=== PATIENT | male | born 1935 | race African-American/Black ===

== ENCOUNTER 2017-08-12 15:14 | Emergency (ER) | payer MEDICARE, MEDICAID ==
[~2017-08-12] VITALS: Ht 167.6 cm; Wt 54.0 kg
[2017-08-12 17:40] VITALS: BP 163/74
== END 2017-08-12 17:51 | disposition home or self-care (01) ==
LOC: ER 16:37
DX: Z45.2 Encounter for adjustment and management of vascular access device (principal); I10 Essential (primary) hypertension; E11.9 Type 2 diabetes mellitus without complications; Z98.890 Other specified postprocedural states
CPT/HCPCS: 99283

== ENCOUNTER 2018-03-02 08:45 | Inpatient (IN) | payer MEDICARE, MEDICAID ==
[~2018-03-02] VITALS: Ht 175.3 cm; Wt 78.0 kg
[2018-03-02] MEDS ORDERED: DEXTROSE 50% WATER 50ML SYRINGE IV ONE ×2 (09:31→10:15)
[2018-03-02] MEDS ORDERED: KETOROLAC 30MG/ML VIAL IV ONE (10:15)
[2018-03-02 10:28] LABS: HEMATOCRIT. 35.9 % (42.0-52.0); HEMOGLOBIN. 11.8 g/dL (14.0-18.0); MEAN CORPUSCULAR HEMOGLOBIN 30.4 pg (28.0-32.0); MEAN CORPUSCULAR VOLUME 92.4 fL (80.0-94.0); MEAN PLATELET VOLUME 9.9 fl (7.4-10.4); PLATELET 199 x1000/uL (130-400); RED BLOOD CELL COUNT 3.88 mill/uL (4.7-6.1); RED CELL DISTRIBUTION WIDTH 14.7 % (11.6-14.6)
[2018-03-02 11:13] LABS: PROTHROMBIN TIME 10.3 sec (9.1-11.1)
[2018-03-02 11:17] LABS: CHLORIDE 113 mEq/L (98-107); ETHANOL BLOOD < 10 mg/dL
[2018-03-02 11:18] LABS: PLATELET ESTIMATE NORMAL
[2018-03-02] MEDS ORDERED: CLONIDINE 0.1MG TABLET PO PRN (12:15)
[2018-03-02 12:29] LABS: BG BASE EXCESS -14.5 mmol/L (-2.0-2.0); BG CARBOXYHEMOGLOBIN 0.3 % (0.5-1.5); BG DEOXYHEMOGLOBIN 4.6 % (0.0-5.0); BG FRACTION INSPIRED OXYGEN 21; BG HCO3 ACT 11.1 mmol/L (22.0-26.0); BG METHEMOGLOBIN 0.5 % (0.0-1.5); BG OXYGEN SATURATION 95.4 % (92.0-98.5); BG OXYHEMOGLOBIN 94.6 % (94.0-97.0); BG PCO2 25.7 mmHg (35.0-45.0); BG PH 7.254 (7.350-7.450); BG PO2 84.6 mmHg (75.0-100.0); BG SAMPLE SITE LEFT RADIAL; BG TOTAL HEMOGLOBIN 11.1 g/dL (12.0-18.0); BG VENT MODE ROOM AIR
[2018-03-02 18:47] VITALS: BP 118/59
[2018-03-02 20:00] VITALS: BP 112/57
[2018-03-02] MEDS ORDERED: DEXTROSE 50% WATER 50ML SYRINGE IV PRN (20:30)
[2018-03-02] MEDS: BLOOD SUGAR DIAGNOSTIC STRIP TEST SCH (20:45)
[2018-03-02] MEDS: SODIUM BICARBONATE 100 MEQ in DEXTROSE 5% WATER 1,000 ML IV SCH (20:49)
[2018-03-02] MEDS: INSULIN LISPRO 100 UNITS/ML SUBCUT SCH (20:50)
[2018-03-02] MEDS: ENOXAPARIN 30MG/0.3ML SYR SUBCUT SCH (20:53)
[2018-03-02] MEDS: IPRATROPIUM/ALBUTEROL 0.5-3(2.5)MG/3ML NEB INH SCH (20:53)
[2018-03-02] MEDS: MORPHINE SULFATE 4 MG/ML CPJ (NOT FOR IM USE) IV PRN (20:57)
[2018-03-02] MEDS ORDERED: LEVOFLOXACIN 500MG PREMIX 100 ML IV NR (21:00)
[2018-03-02] MEDS ORDERED: PREG50CA PO (23:39)
[2018-03-02] MEDS ORDERED: LINA5TAB PO (23:39)
[2018-03-02] MEDS ORDERED: BENA20TA10 PO (23:39)
[2018-03-02] MEDS ORDERED: SPIR25TA6 PO (23:39)
[2018-03-02] MEDS ORDERED: ATOR20TA PO (23:39)
[2018-03-02] MEDS ORDERED: GLIM2TAB2 PO (23:39)
[2018-03-02] MEDS ORDERED: TAMS0.4C31 PO (23:39)
[2018-03-02] MEDS ORDERED: AMLO10TA80 PO (23:39)
[2018-03-02] MEDS ORDERED: LABE100T5 PO (23:39)
[2018-03-02] MEDS ORDERED: FINA5TAB11 PO (23:39)
[2018-03-02] MEDS ORDERED: ASPI-1159 PO (23:39)
[2018-03-03] MEDS: IPRATROPIUM/ALBUTEROL 0.5-3(2.5)MG/3ML NEB INH SCH ×4 (01:00→20:06)
[2018-03-03 04:00] VITALS: BP 106/58
[2018-03-03] MEDS: BLOOD SUGAR DIAGNOSTIC STRIP TEST SCH ×4 (06:45→20:33)
[2018-03-03] MEDS: INSULIN LISPRO 100 UNITS/ML SUBCUT SCH ×4 (06:47→20:33)
[2018-03-03] MEDS: SODIUM BICARBONATE 100 MEQ in DEXTROSE 5% WATER 1,000 ML IV SCH ×3 (07:00→23:13)
[2018-03-03 07:29] LABS: BG BASE EXCESS -10.6 mmol/L (-2.0-2.0); BG CARBOXYHEMOGLOBIN 0.9 % (0.5-1.5); BG DEOXYHEMOGLOBIN 4.9 % (0.0-5.0); BG FRACTION INSPIRED OXYGEN 21; BG HCO3 ACT 14.3 mmol/L (22.0-26.0); BG METHEMOGLOBIN 0.4 % (0.0-1.5); BG OXYHEMOGLOBIN 93.8 % (94.0-97.0); BG PCO2 28.8 mmHg (35.0-45.0); BG PH 7.313 (7.350-7.450); BG PO2 80.9 mmHg (75.0-100.0); BG SAMPLE SITE RIGHT RADIAL; BG TOTAL HEMOGLOBIN 11.4 g/dL (12.0-18.0); BG VENT MODE ROOM AIR
[2018-03-03 08:00] VITALS: BP 115/49
[2018-03-03 08:36] LABS: HEMATOCRIT. 30.2 % (42.0-52.0); HEMOGLOBIN. 10.1 g/dL (14.0-18.0); MEAN CORPUSCULAR HEMOGLOBIN 30.6 pg (28.0-32.0); MEAN CORPUSCULAR VOLUME 91.4 fL (80.0-94.0); MEAN PLATELET VOLUME 9.6 fl (7.4-10.4); PLATELET 180 x1000/uL (130-400); RED CELL DISTRIBUTION WIDTH 14.3 % (11.6-14.6)
[2018-03-03 09:29] LABS: CHLORIDE 112 mEq/L (98-107)
[2018-03-03 09:43] LABS: TOTAL IRON BINDING CAPACITY 186 ug/dL (250-450)
[2018-03-03] MEDS ORDERED: SODIUM POLYSTYRENE SULFONATE 15 G/60 ML BOT PO NR (09:45)
[2018-03-03 12:00] VITALS: BP 101/54
[2018-03-03] MEDS: TRAMADOL 50MG TABLET PO PRN ×2 (13:18→21:50)
[2018-03-03 14:34] LABS: CREATINE KINASE 764 IU/L (39-308)
[2018-03-03 15:59] LABS: PLATELET ESTIMATE NORMAL
[2018-03-03 20:00] VITALS: BP 114/58
[2018-03-03] MEDS: ENOXAPARIN 30MG/0.3ML SYR SUBCUT SCH (21:48)
[2018-03-04] VITALS: BP 116/66
[2018-03-04] MEDS: IPRATROPIUM/ALBUTEROL 0.5-3(2.5)MG/3ML NEB INH SCH ×4 (01:33→20:28)
[2018-03-04] MEDS: MORPHINE SULFATE 4 MG/ML CPJ (NOT FOR IM USE) IV PRN (02:50)
[2018-03-04 04:00] VITALS: BP 125/71
[2018-03-04] MEDS: BLOOD SUGAR DIAGNOSTIC STRIP TEST SCH ×4 (06:35→20:41)
[2018-03-04] MEDS: INSULIN LISPRO 100 UNITS/ML SUBCUT SCH ×4 (06:38→20:44)
[2018-03-04 08:00] VITALS: BP 148/68
[2018-03-04 08:04] LABS: HEMATOCRIT. 30.6 % (42.0-52.0); HEMOGLOBIN. 10.2 g/dL (14.0-18.0); MEAN CORPUSCULAR HEMOGLOBIN 30.2 pg (28.0-32.0); MEAN CORPUSCULAR VOLUME 90.5 fL (80.0-94.0); MEAN PLATELET VOLUME 9.6 fl (7.4-10.4); PLATELET 190 x1000/uL (130-400); RED BLOOD CELL COUNT 3.38 mill/uL (4.7-6.1); RED CELL DISTRIBUTION WIDTH 14.4 % (11.6-14.6)
[2018-03-04 11:13] LABS: PLATELET ESTIMATE NORMAL
[2018-03-04 12:00] VITALS: BP_SYST 132; BP_SYST 134; BP_DIAS 72
[2018-03-04 16:00] VITALS: BP_SYST 116; BP_DIAS 66; BP_DIAS 69
[2018-03-04] MEDS: TRAMADOL 50MG TABLET PO PRN (16:28)
[2018-03-04] MEDS: SODIUM BICARBONATE 100 MEQ in DEXTROSE 5% WATER 1,000 ML IV SCH (16:29)
[2018-03-04 20:00] VITALS: BP 109/61
[2018-03-04] MEDS: LEVOFLOXACIN 250MG PREMIX 50 ML IV SCH (20:44)
[2018-03-04] MEDS: ENOXAPARIN 30MG/0.3ML SYR SUBCUT SCH (20:45)
[2018-03-05] VITALS: BP 129/63
[2018-03-05] MEDS: IPRATROPIUM/ALBUTEROL 0.5-3(2.5)MG/3ML NEB INH SCH ×4 (01:53→20:51)
[2018-03-05] MEDS: SODIUM BICARBONATE 100 MEQ in DEXTROSE 5% WATER 1,000 ML IV SCH ×2 (03:11→15:05)
[2018-03-05 04:00] VITALS: BP 121/73
[2018-03-05] MEDS: MORPHINE SULFATE 4 MG/ML CPJ (NOT FOR IM USE) IV PRN (04:32)
[2018-03-05] MEDS: BLOOD SUGAR DIAGNOSTIC STRIP TEST SCH ×4 (06:27→21:34)
[2018-03-05] MEDS: INSULIN LISPRO 100 UNITS/ML SUBCUT SCH ×4 (06:30→21:42)
[2018-03-05 07:02] LABS: BASOPHILS % 0.7 % (0.0-2.0); EOSINOPHILS % 2.7 % (0.0-5.0); HEMATOCRIT. 33.1 % (42.0-52.0); HEMOGLOBIN. 11.1 g/dL (14.0-18.0); LYMPHOCYTES % 11.4 % (20.0-50.0); MEAN CORPUSCULAR HEMOGLOBIN 30.6 pg (28.0-32.0); MEAN CORPUSCULAR VOLUME 91.2 fL (80.0-94.0); MEAN PLATELET VOLUME 9.4 fl (7.4-10.4); MONOCYTES % 14.1 % (2.0-8.0); NEUTROPHILS % 71.1 % (40.0-76.0); PLATELET 186 x1000/uL (130-400); RED BLOOD CELL COUNT 3.63 mill/uL (4.7-6.1); RED CELL DISTRIBUTION WIDTH 14.6 % (11.6-14.6)
[2018-03-05 08:00] VITALS: BP 131/78
[2018-03-05 11:58] LABS: T4 FREE 1.6 ng/dL (0.76-1.46)
[2018-03-05 12:00] VITALS: BP 118/67
[2018-03-05 12:13] LABS: FOLIC ACID (FOLATE) SERUM 12.6 ng/mL (>5.38)
[2018-03-05 16:00] VITALS: BP 114/63
[2018-03-05 16:23] LABS: BG BASE EXCESS -2.6 mmol/L (-2.0-2.0); BG CARBOXYHEMOGLOBIN 0.7 % (0.5-1.5); BG DEOXYHEMOGLOBIN 6.9 % (0.0-5.0); BG FRACTION INSPIRED OXYGEN 21; BG HCO3 ACT 21.7 mmol/L (22.0-26.0); BG METHEMOGLOBIN 0.3 % (0.0-1.5); BG OXYHEMOGLOBIN 92.1 % (94.0-97.0); BG PCO2 35.8 mmHg (35.0-45.0); BG PH 7.401 (7.350-7.450); BG PO2 68.6 mmHg (75.0-100.0); BG SAMPLE SITE RIGHT RADIAL; BG TOTAL HEMOGLOBIN 10.6 g/dL (12.0-18.0); BG VENT MODE ROOM AIR
[2018-03-05 20:00] VITALS: BP 122/72
[2018-03-05] MEDS: ENOXAPARIN 30MG/0.3ML SYR SUBCUT SCH (21:34)
[2018-03-06] VITALS: BP 119/68
[2018-03-06] MEDS: IPRATROPIUM/ALBUTEROL 0.5-3(2.5)MG/3ML NEB INH SCH ×4 (01:01→20:40)
[2018-03-06 04:00] VITALS: BP 132/71
[2018-03-06] MEDS: MORPHINE SULFATE 4 MG/ML CPJ (NOT FOR IM USE) IV PRN ×2 (05:23→17:25)
[2018-03-06] MEDS: BLOOD SUGAR DIAGNOSTIC STRIP TEST SCH ×4 (05:23→21:05)
[2018-03-06] MEDS: ONDANSETRON HCL 4MG/2ML INJ IV PRN (05:23)
[2018-03-06] MEDS: SODIUM BICARBONATE 100 MEQ in DEXTROSE 5% WATER 1,000 ML IV SCH ×2 (05:24→15:11)
[2018-03-06] MEDS: INSULIN LISPRO 100 UNITS/ML SUBCUT SCH ×4 (07:01→21:05)
[2018-03-06 08:36] VITALS: BP 107/67
[2018-03-06 09:31] LABS: HEMATOCRIT. 30.8 % (42.0-52.0); HEMOGLOBIN. 10.2 g/dL (14.0-18.0); MEAN CORPUSCULAR HEMOGLOBIN 30.1 pg (28.0-32.0); MEAN CORPUSCULAR VOLUME 90.9 fL (80.0-94.0); MEAN PLATELET VOLUME 9.4 fl (7.4-10.4); PLATELET 184 x1000/uL (130-400); RED BLOOD CELL COUNT 3.39 mill/uL (4.7-6.1); RED CELL DISTRIBUTION WIDTH 14.2 % (11.6-14.6)
[2018-03-06 11:47] VITALS: BP 134/70
[2018-03-06] MEDS: DEXAMETHASONE 4MG/ML 1ML VIAL IV SCH ×2 (12:21→17:24)
[2018-03-06 14:23] LABS: PLATELET ESTIMATE NORMAL
[2018-03-06 15:42] VITALS: BP 122/65
[2018-03-06 20:41] VITALS: BP 130/88
[2018-03-06] MEDS: LEVOFLOXACIN 250MG PREMIX 50 ML IV SCH (20:57)
[2018-03-06] MEDS: ENOXAPARIN 30MG/0.3ML SYR SUBCUT SCH (20:58)
[2018-03-07] VITALS: BP 128/66
[2018-03-07] MEDS: IPRATROPIUM/ALBUTEROL 0.5-3(2.5)MG/3ML NEB INH SCH ×4 (01:17→20:34)
[2018-03-07] MEDS: SODIUM BICARBONATE 100 MEQ in DEXTROSE 5% WATER 1,000 ML IV SCH (01:31)
[2018-03-07] MEDS: MORPHINE SULFATE 4 MG/ML CPJ (NOT FOR IM USE) IV PRN (01:31)
[2018-03-07] MEDS: DEXAMETHASONE 4MG/ML 1ML VIAL IV SCH ×4 (01:31→17:56)
[2018-03-07 04:00] VITALS: BP 115/66
[2018-03-07] MEDS: INSULIN LISPRO 100 UNITS/ML SUBCUT SCH ×4 (06:25→21:17)
[2018-03-07] MEDS: BLOOD SUGAR DIAGNOSTIC STRIP TEST SCH ×4 (06:25→20:48)
[2018-03-07 08:00] VITALS: BP 125/66
[2018-03-07] MEDS: SODIUM CHLORIDE 0.45% 1,000 ML IV SCH (09:28)
[2018-03-07 10:20] LABS: CREATINE KINASE 170 IU/L (39-308)
[2018-03-07 12:00] VITALS: BP 134/67
[2018-03-07] MEDS ORDERED: BISACODYL 10MG SUPP PR NR (13:00)
[2018-03-07] MEDS: LACTULOSE 20G/30ML UDC PO SCH ×3 (15:42→21:07)
[2018-03-07 16:00] VITALS: BP 120/73
[2018-03-07 20:00] VITALS: BP 115/71
[2018-03-07] MEDS: ENOXAPARIN 30MG/0.3ML SYR SUBCUT SCH (21:07)
[2018-03-08] VITALS: BP 110/80
[2018-03-08] MEDS: IPRATROPIUM/ALBUTEROL 0.5-3(2.5)MG/3ML NEB INH SCH ×3 (01:25→20:16)
[2018-03-08] MEDS: DEXAMETHASONE 4MG/ML 1ML VIAL IV SCH ×5 (02:26→23:43)
[2018-03-08] MEDS: SODIUM CHLORIDE 0.45% 1,000 ML IV SCH ×3 (02:26→23:52)
[2018-03-08 04:00] VITALS: BP 148/60
[2018-03-08] MEDS: BLOOD SUGAR DIAGNOSTIC STRIP TEST SCH ×4 (05:39→20:54)
[2018-03-08] MEDS: INSULIN LISPRO 100 UNITS/ML SUBCUT SCH ×4 (05:55→21:03)
[2018-03-08] MEDS: TRAMADOL 50MG TABLET PO PRN (07:02)
[2018-03-08 07:18] LABS: HEMATOCRIT. 31.1 % (42.0-52.0); HEMOGLOBIN. 10.2 g/dL (14.0-18.0); MEAN CORPUSCULAR VOLUME 91.2 fL (80.0-94.0); PLATELET 190 x1000/uL (130-400)
[2018-03-08 08:00] VITALS: BP 138/82
[2018-03-08 08:38] LABS: PHOSPHORUS 3.3 mg/dL (2.5-4.9)
[2018-03-08] MEDS: MORPHINE SULFATE 4 MG/ML CPJ (NOT FOR IM USE) IV PRN ×2 (11:22→17:29)
[2018-03-08 12:00] VITALS: BP 119/65
[2018-03-08 15:57] LABS: PLATELET ESTIMATE NORMAL
[2018-03-08 16:00] VITALS: BP 140/67
[2018-03-08] MEDS ORDERED: BISACODYL 10MG SUPP PR SCH (17:50)
[2018-03-08] MEDS: LACTULOSE 20G/30ML UDC PO SCH ×3 (18:45→23:51)
[2018-03-08 20:00] VITALS: BP 147/66
[2018-03-08] MEDS: LEVOFLOXACIN 250MG PREMIX 50 ML IV SCH (20:30)
[2018-03-09] VITALS (49 sets, daily range): BP systolic -1–178; BP diastolic -5–106
[2018-03-09] MEDS: IPRATROPIUM/ALBUTEROL 0.5-3(2.5)MG/3ML NEB INH SCH ×3 (02:04→14:30)
[2018-03-09] MEDS: DEXAMETHASONE 4MG/ML 1ML VIAL IV SCH ×3 (05:41→18:52)
[2018-03-09] MEDS: BLOOD SUGAR DIAGNOSTIC STRIP TEST SCH ×4 (05:42→20:28)
[2018-03-09] MEDS: INSULIN LISPRO 100 UNITS/ML SUBCUT SCH ×4 (05:56→20:33)
[2018-03-09] MEDS ORDERED: GELATIN SPONGE,ABSORBABLE 12-7MM SPONGE ONE (07:43)
[2018-03-09] MEDS ORDERED: NORMAL SALINE 0.9% 10 ML SYR ONE (07:43)
[2018-03-09] MEDS ORDERED: BACITRACIN 50,000 UNITS/VIAL ONE (07:44)
[2018-03-09] MEDS ORDERED: THROMBIN (BOVINE) 5000 UNITS/VIAL TOP ONE (07:44)
[2018-03-09] MEDS ORDERED: LIDOCAINE HCL/EPINEPHRINE 1%-EPI 1:100,000 20 ML VIAL ONE (07:44)
[2018-03-09] MEDS ORDERED: ROCURONIUM BROMIDE 10MG/ML VIAL 5ML IV ONE (07:45)
[2018-03-09] MEDS ORDERED: MIDAZOLAM HCL 2 MG/2 ML VIAL ONE (07:45)
[2018-03-09] MEDS ORDERED: FENTANYL CITRATE/PF 50MCG/ML 5ML VIAL ONE (07:45)
[2018-03-09] MEDS ORDERED: HYDROMORPHONE HCL/PF 2MG/ML (OR) ONE (07:45)
[2018-03-09] MEDS ORDERED: PROPOFOL 200MG/20ML VIAL IV ONE (07:45)
[2018-03-09] MEDS ORDERED: INSULIN REGULAR (HUMULIN R) 300UNITS/3ML ONE (08:58)
[2018-03-09] MEDS ORDERED: NICARDIPINE 50 MG in SODIUM CHLORIDE 0.9% 230 ML IV PRN (09:15)
[2018-03-09 09:31] LABS: CREATINE KINASE 289 IU/L (39-308)
[2018-03-09] MEDS ORDERED: ESMOLOL HCL 10MG/ML 10ML VIAL IV ONE (09:43)
[2018-03-09] MEDS ORDERED: CEFAZOLIN SODIUM 1000MG/VIAL ONE (09:44)
[2018-03-09] MEDS ORDERED: LIDOCAINE HCL/PF 1% 10 MG/ML 5ML VIAL ONE (09:44)
[2018-03-09] MEDS ORDERED: NITROGLYCERIN 50MG PREMIX 250 ML IV ONE (09:50)
[2018-03-09] MEDS ORDERED: NITROPRUSSIDE 50 MG in SODIUM CHLORIDE 0.9% 248 ML IV PRN (10:30)
[2018-03-09] MEDS ORDERED: ONDANSETRON HCL 4MG/2ML INJ ONE (11:04)
[2018-03-09] MEDS ORDERED: DEXAMETHASONE 4MG/ML 1ML VIAL ONE (11:04)
[2018-03-09 11:25] LABS: HEMATOCRIT. 31.1 % (42.0-52.0); HEMOGLOBIN. 10.2 g/dL (14.0-18.0); MEAN CORPUSCULAR HEMOGLOBIN 30.1 pg (28.0-32.0); MEAN CORPUSCULAR VOLUME 92.3 fL (80.0-94.0); PLATELET 198 x1000/uL (130-400); RED BLOOD CELL COUNT 3.37 mill/uL (4.7-6.1); RED CELL DISTRIBUTION WIDTH 13.9 % (11.6-14.6)
[2018-03-09] MEDS ORDERED: NALOXONE INJ IV PRN (12:15)
[2018-03-09] MEDS ORDERED: HYDROMORPHONE PCA 10MG/50ML IV PRN (12:15)
[2018-03-09] MEDS ORDERED: ONDANSETRON INJ IV PRN (12:15)
[2018-03-09] MEDS ORDERED: DIPHENHYDRAMINE INJ IV PRN (12:15)
[2018-03-09 12:27] LABS: PLATELET ESTIMATE NORMAL
[2018-03-09] MEDS: MORPHINE SULFATE 4 MG/ML CPJ (NOT FOR IM USE) IV PRN (12:32)
[2018-03-09] MEDS: SODIUM CHLORIDE 0.45% 1,000 ML IV SCH ×2 (13:06→20:33)
[2018-03-09] MEDS: LEVOFLOXACIN 250MG PREMIX 50 ML IV SCH (20:33)
[2018-03-10] VITALS (81 sets, daily range): BP systolic -4–164; BP diastolic -4–109
[2018-03-10] MEDS: DEXAMETHASONE 4MG/ML 1ML VIAL IV SCH ×5 (00:32→23:30)
[2018-03-10] MEDS: MORPHINE SULFATE 4 MG/ML CPJ (NOT FOR IM USE) IV PRN (00:59)
[2018-03-10] MEDS: IPRATROPIUM/ALBUTEROL 0.5-3(2.5)MG/3ML NEB INH SCH ×2 (01:07→10:00)
[2018-03-10] MEDS: BLOOD SUGAR DIAGNOSTIC STRIP TEST SCH ×4 (05:48→20:05)
[2018-03-10] MEDS: SODIUM CHLORIDE 0.45% 1,000 ML IV SCH ×2 (05:50→17:30)
[2018-03-10 06:01] LABS: HEMATOCRIT. 28.4 % (42.0-52.0); HEMOGLOBIN. 9.4 g/dL (14.0-18.0); MEAN CORPUSCULAR HEMOGLOBIN 30.1 pg (28.0-32.0); MEAN CORPUSCULAR VOLUME 90.6 fL (80.0-94.0); PLATELET 193 x1000/uL (130-400); RED BLOOD CELL COUNT 3.13 mill/uL (4.7-6.1)
[2018-03-10] MEDS: INSULIN LISPRO 100 UNITS/ML SUBCUT SCH ×4 (06:02→20:32)
[2018-03-10 09:56] LABS: PLATELET ESTIMATE NORMAL
[2018-03-10] MEDS: LABETALOL HCL 100MG TABLET PO SCH ×2 (12:00→20:22)
[2018-03-10] MEDS: IPRATROPIUM/ALBUTEROL 0.5-3(2.5)MG/3ML NEB HHN SCH ×2 (12:51→20:27)
[2018-03-10] MEDS: AMLODIPINE 5MG TABLET PO SCH ×2 (17:30→20:22)
[2018-03-10] MEDS ORDERED: IPRATROPIUM/ALBUTEROL 0.5-3(2.5)MG/3ML NEB HHN PRN (18:30)
[2018-03-11] VITALS (46 sets, daily range): BP systolic 120–151; BP diastolic 59–85
[2018-03-11] MEDS: DEXAMETHASONE 4MG/ML 1ML VIAL IV SCH ×4 (05:06→23:28)
[2018-03-11] MEDS: SODIUM CHLORIDE 0.45% 1,000 ML IV SCH ×2 (05:07→18:16)
[2018-03-11] MEDS: BLOOD SUGAR DIAGNOSTIC STRIP TEST SCH ×4 (06:29→21:22)
[2018-03-11] MEDS: INSULIN LISPRO 100 UNITS/ML SUBCUT SCH ×4 (06:33→21:25)
[2018-03-11 07:31] LABS: CHLORIDE 103 mEq/L (98-107)
[2018-03-11 07:32] LABS: CREATINE KINASE 313 IU/L (39-308)
[2018-03-11 07:43] LABS: HEMATOCRIT. 29.8 % (42.0-52.0); HEMOGLOBIN. 9.9 g/dL (14.0-18.0); RED BLOOD CELL COUNT 3.25 mill/uL (4.7-6.1)
[2018-03-11 07:44] LABS: MEAN CORPUSCULAR HEMOGLOBIN 30.5 pg (28.0-32.0); MEAN CORPUSCULAR VOLUME 91.8 fL (80.0-94.0); MEAN PLATELET VOLUME 9.7 fl (7.4-10.4); PLATELET 183 x1000/uL (130-400); RED CELL DISTRIBUTION WIDTH 13.8 % (11.6-14.6)
[2018-03-11] MEDS: IPRATROPIUM/ALBUTEROL 0.5-3(2.5)MG/3ML NEB HHN SCH ×3 (09:09→20:04)
[2018-03-11] MEDS ORDERED: BISACODYL 10MG SUPP PR NR (09:45)
[2018-03-11] MEDS: LABETALOL HCL 100MG TABLET PO SCH ×2 (12:05→21:21)
[2018-03-11] MEDS: AMLODIPINE 5MG TABLET PO SCH ×2 (12:06→21:22)
[2018-03-11] MEDS ORDERED: SODIUM POLYSTYRENE SULFONATE 15 G/60 ML BOT PO NR (12:30)
[2018-03-11 13:45] LABS: PLATELET ESTIMATE NORMAL
[2018-03-12] VITALS (16 sets, daily range): BP systolic 130–151; BP diastolic 56–82
[2018-03-12] MEDS: IPRATROPIUM/ALBUTEROL 0.5-3(2.5)MG/3ML NEB HHN SCH ×4 (01:32→20:54)
[2018-03-12] MEDS: SODIUM CHLORIDE 0.45% 1,000 ML IV SCH (04:03)
[2018-03-12 05:39] LABS: HEMATOCRIT. 27.9 % (42.0-52.0); HEMOGLOBIN. 9.4 g/dL (14.0-18.0); MEAN CORPUSCULAR HEMOGLOBIN 30.8 pg (28.0-32.0); MEAN CORPUSCULAR VOLUME 91.6 fL (80.0-94.0); MEAN PLATELET VOLUME 9.7 fl (7.4-10.4); PLATELET 179 x1000/uL (130-400); RED BLOOD CELL COUNT 3.04 mill/uL (4.7-6.1); RED CELL DISTRIBUTION WIDTH 13.8 % (11.6-14.6)
[2018-03-12] MEDS: BLOOD SUGAR DIAGNOSTIC STRIP TEST SCH ×5 (06:18→22:08)
[2018-03-12] MEDS: INSULIN LISPRO 100 UNITS/ML SUBCUT SCH ×5 (06:18→22:08)
[2018-03-12] MEDS: DEXAMETHASONE 4MG/ML 1ML VIAL IV SCH ×3 (06:18→18:16)
[2018-03-12 07:36] LABS: PLATELET ESTIMATE NORMAL
[2018-03-12] MEDS ORDERED: SODIUM POLYSTYRENE SULFONATE 15 G/60 ML BOT PO NR (07:45)
[2018-03-12] MEDS: LABETALOL HCL 100MG TABLET PO SCH ×2 (09:00→21:30)
[2018-03-12] MEDS: AMLODIPINE 5MG TABLET PO SCH ×2 (09:36→21:29)
[2018-03-13] VITALS: BP 127/72
[2018-03-13] MEDS: DEXAMETHASONE 4MG/ML 1ML VIAL IV SCH ×5 (00:27→23:24)
[2018-03-13] MEDS: IPRATROPIUM/ALBUTEROL 0.5-3(2.5)MG/3ML NEB HHN SCH ×4 (00:54→21:12)
[2018-03-13 04:00] VITALS: BP 133/68
[2018-03-13 06:11] LABS: HEMATOCRIT. 28.6 % (42.0-52.0); HEMOGLOBIN. 9.4 g/dL (14.0-18.0); MEAN CORPUSCULAR HEMOGLOBIN 30.1 pg (28.0-32.0); MEAN CORPUSCULAR VOLUME 91.6 fL (80.0-94.0); MEAN PLATELET VOLUME 9.9 fl (7.4-10.4); PLATELET 189 x1000/uL (130-400); RED BLOOD CELL COUNT 3.12 mill/uL (4.7-6.1)
[2018-03-13] MEDS: MORPHINE SULFATE 4 MG/ML CPJ (NOT FOR IM USE) IV PRN (07:38)
[2018-03-13] MEDS: BLOOD SUGAR DIAGNOSTIC STRIP TEST SCH ×4 (07:40→20:47)
[2018-03-13 08:00] VITALS: BP 151/82
[2018-03-13] MEDS ORDERED: SODIUM POLYSTYRENE SULFONATE 15 G/60 ML BOT PO SCH (09:15)
[2018-03-13] MEDS: LABETALOL HCL 100MG TABLET PO SCH ×2 (09:26→20:47)
[2018-03-13] MEDS: INSULIN LISPRO 100 UNITS/ML SUBCUT SCH ×4 (09:26→20:58)
[2018-03-13] MEDS: AMLODIPINE 5MG TABLET PO SCH ×2 (09:27→20:47)
[2018-03-13] MEDS: DEXT 5%/0.45% NACL 1000ML 1,000 ML IV SCH (09:45)
[2018-03-13 10:11] LABS: PLATELET ESTIMATE NORMAL
[2018-03-13 12:00] VITALS: BP 155/125
[2018-03-13 16:00] VITALS: BP 142/69
[2018-03-13 20:00] VITALS: BP 135/65
[2018-03-14] VITALS: BP 136/72
[2018-03-14] MEDS: IPRATROPIUM/ALBUTEROL 0.5-3(2.5)MG/3ML NEB HHN SCH ×4 (01:25→20:26)
[2018-03-14 04:00] VITALS: BP 119/62
[2018-03-14] MEDS: BLOOD SUGAR DIAGNOSTIC STRIP TEST SCH ×4 (06:20→21:34)
[2018-03-14] MEDS: DEXAMETHASONE 4MG/ML 1ML VIAL IV SCH ×3 (06:24→18:38)
[2018-03-14 06:30] LABS: HEMATOCRIT. 30.5 % (42.0-52.0); MEAN CORPUSCULAR VOLUME 91.8 fL (80.0-94.0); MEAN PLATELET VOLUME 9.7 fl (7.4-10.4); PLATELET 207 x1000/uL (130-400); RED BLOOD CELL COUNT 3.32 mill/uL (4.7-6.1); RED CELL DISTRIBUTION WIDTH 14.3 % (11.6-14.6)
[2018-03-14 08:00] VITALS: BP 157/80
[2018-03-14] MEDS: DEXT 5%/0.45% NACL 1000ML 1,000 ML IV SCH (08:56)
[2018-03-14] MEDS: AMLODIPINE 5MG TABLET PO SCH ×2 (09:32→21:00)
[2018-03-14] MEDS: LABETALOL HCL 100MG TABLET PO SCH ×2 (09:33→21:00)
[2018-03-14] MEDS: INSULIN LISPRO 100 UNITS/ML SUBCUT SCH ×5 (09:37→21:38)
[2018-03-14 09:38] LABS: PLATELET ESTIMATE NORMAL
[2018-03-14] MEDS ORDERED: SODIUM POLYSTYRENE SULFONATE 15 G/60 ML BOT PO SCH (10:00)
[2018-03-14 12:00] VITALS: BP 132/73
[2018-03-14 16:00] VITALS: BP 122/65
[2018-03-14 20:00] VITALS: BP 135/66
[2018-03-15] VITALS (8 sets, daily range): BP systolic 123–159; BP diastolic 67–79
[2018-03-15] MEDS: DEXAMETHASONE 4MG/ML 1ML VIAL IV SCH ×4 (00:15→18:01)
[2018-03-15] MEDS: ACETYLCYSTEINE 100MG/ML 10% VIAL 4ML INH SCH ×3 (01:52→13:16)
[2018-03-15] MEDS: IPRATROPIUM/ALBUTEROL 0.5-3(2.5)MG/3ML NEB HHN SCH ×4 (01:52→20:57)
[2018-03-15 06:48] LABS: HEMOGLOBIN. 9.7 g/dL (14.0-18.0); MEAN CORPUSCULAR HEMOGLOBIN 29.9 pg (28.0-32.0); MEAN CORPUSCULAR VOLUME 92.7 fL (80.0-94.0); PLATELET 187 x1000/uL (130-400); RED BLOOD CELL COUNT 3.24 mill/uL (4.7-6.1); RED CELL DISTRIBUTION WIDTH 14.4 % (11.6-14.6)
[2018-03-15] MEDS: BLOOD SUGAR DIAGNOSTIC STRIP TEST SCH ×4 (06:54→21:00)
[2018-03-15] MEDS: DEXT 5%/0.45% NACL 1000ML 1,000 ML IV SCH ×2 (08:26→17:17)
[2018-03-15] MEDS: LABETALOL HCL 100MG TABLET PO SCH ×2 (08:28→22:34)
[2018-03-15] MEDS: AMLODIPINE 5MG TABLET PO SCH ×2 (08:28→22:35)
[2018-03-15] MEDS: INSULIN LISPRO 100 UNITS/ML SUBCUT SCH ×3 (08:29→17:40)
[2018-03-15] MEDS: INSULIN GLARGINE UD 100 UNITS/ML SYR SUBCUT SCH (10:41)
[2018-03-15] MEDS ORDERED: INSULIN LISPRO 100 UNITS/ML SUBCUT SCH ×2 (12:40→12:45)
[2018-03-15] MEDS: INSULIN LISPRO (CUSTOM DOSE) 100 UNITS/ML SUBCUT SCH ×2 (12:42→18:02)
[2018-03-15 16:51] LABS: PLATELET ESTIMATE NORMAL
[2018-03-16] VITALS (7 sets, daily range): BP systolic 95–159; BP diastolic 57–78
[2018-03-16] MEDS: DEXAMETHASONE 4MG/ML 1ML VIAL IV SCH ×2 (00:33→06:52)
[2018-03-16] MEDS: IPRATROPIUM/ALBUTEROL 0.5-3(2.5)MG/3ML NEB HHN SCH ×4 (02:15→19:50)
[2018-03-16] MEDS: DEXT 5%/0.45% NACL 1000ML 1,000 ML IV SCH ×2 (06:38→21:27)
[2018-03-16 06:52] LABS: HEMATOCRIT. 28.4 % (42.0-52.0); HEMOGLOBIN. 9.3 g/dL (14.0-18.0); MEAN CORPUSCULAR HEMOGLOBIN 30.5 pg (28.0-32.0); MEAN CORPUSCULAR VOLUME 92.9 fL (80.0-94.0); MEAN PLATELET VOLUME 10.2 fl (7.4-10.4); PLATELET 183 x1000/uL (130-400); RED BLOOD CELL COUNT 3.06 mill/uL (4.7-6.1); RED CELL DISTRIBUTION WIDTH 14.5 % (11.6-14.6)
[2018-03-16] MEDS: ACETAMINOPHEN 325MG TABLET PO PRN (06:52)
[2018-03-16] MEDS: INSULIN LISPRO 100 UNITS/ML SUBCUT SCH ×3 (07:40→18:38)
[2018-03-16] MEDS: BLOOD SUGAR DIAGNOSTIC STRIP TEST SCH ×4 (08:22→21:09)
[2018-03-16] MEDS: AMLODIPINE 5MG TABLET PO SCH ×2 (09:00→21:00)
[2018-03-16] MEDS: LABETALOL HCL 100MG TABLET PO SCH ×2 (09:00→21:00)
[2018-03-16 09:06] LABS: T4 FREE 1.25 ng/dL (0.76-1.46)
[2018-03-16] MEDS: INSULIN LISPRO (CUSTOM DOSE) 100 UNITS/ML SUBCUT SCH ×4 (10:35→21:28)
[2018-03-16] MEDS: INSULIN GLARGINE UD 100 UNITS/ML SYR SUBCUT SCH (10:38)
[2018-03-16 10:43] LABS: PLATELET ESTIMATE NORMAL
[2018-03-16] MEDS ORDERED: SODIUM POLYSTYRENE SULFONATE 15 G/60 ML BOT PR SCH (11:00)
[2018-03-16] MEDS ORDERED: BARIUM SULFATE 176 GM SUSP.RECON ONE (13:36)
[2018-03-16] MEDS ORDERED: INSULIN LISPRO 100 UNITS/ML SUBCUT SCH (13:45)
[2018-03-17] VITALS (10 sets, daily range): BP systolic 71–140; BP diastolic 37–71
[2018-03-17] MEDS: ACETYLCYSTEINE 100MG/ML 10% VIAL 4ML INH SCH ×4 (02:07→13:20)
[2018-03-17] MEDS: IPRATROPIUM/ALBUTEROL 0.5-3(2.5)MG/3ML NEB HHN SCH ×4 (02:07→20:28)
[2018-03-17] MEDS: BLOOD SUGAR DIAGNOSTIC STRIP TEST SCH ×4 (06:17→21:27)
[2018-03-17 07:05] LABS: HEMATOCRIT. 28.4 % (42.0-52.0); HEMOGLOBIN. 9.2 g/dL (14.0-18.0); MEAN CORPUSCULAR VOLUME 92.9 fL (80.0-94.0); MEAN PLATELET VOLUME 10.1 fl (7.4-10.4); PLATELET 139 x1000/uL (130-400); RED BLOOD CELL COUNT 3.05 mill/uL (4.7-6.1); RED CELL DISTRIBUTION WIDTH 14.4 % (11.6-14.6)
[2018-03-17] MEDS: DEXAMETHASONE 4MG/ML 1ML VIAL IV SCH (09:00)
[2018-03-17] MEDS: AMLODIPINE 5MG TABLET PO SCH (09:04)
[2018-03-17] MEDS: LABETALOL HCL 100MG TABLET PO SCH (09:04)
[2018-03-17] MEDS: INSULIN LISPRO 100 UNITS/ML SUBCUT SCH ×3 (09:05→17:51)
[2018-03-17] MEDS: INSULIN LISPRO (CUSTOM DOSE) 100 UNITS/ML SUBCUT SCH ×3 (09:06→17:36)
[2018-03-17] MEDS: DEXT 5%/0.45% NACL 1000ML 1,000 ML IV SCH (11:36)
[2018-03-17] MEDS: INSULIN GLARGINE UD 100 UNITS/ML SYR SUBCUT SCH (11:41)
[2018-03-17 15:28] LABS: PLATELET ESTIMATE NORMAL
[2018-03-17] MEDS ORDERED: SODIUM CHLORIDE 0.9% 500 ML IV NR (20:45)
[2018-03-17] MEDS ORDERED: LEVOFLOXACIN 500MG PREMIX 100 ML IV NR (22:00)
[2018-03-18] VITALS (15 sets, daily range): BP systolic 81–130; BP diastolic 41–65
[2018-03-18] MEDS: DEXT 5%/0.45% NACL 1000ML 1,000 ML IV SCH ×2 (01:52→10:55)
[2018-03-18] MEDS: IPRATROPIUM/ALBUTEROL 0.5-3(2.5)MG/3ML NEB HHN SCH ×4 (02:20→21:27)
[2018-03-18 06:17] LABS: HEMATOCRIT. 26.2 % (42.0-52.0); HEMOGLOBIN. 8.4 g/dL (14.0-18.0); MEAN CORPUSCULAR HEMOGLOBIN 30.2 pg (28.0-32.0); MEAN CORPUSCULAR VOLUME 93.8 fL (80.0-94.0); MEAN PLATELET VOLUME 10.8 fl (7.4-10.4); PLATELET 102 x1000/uL (130-400); RED BLOOD CELL COUNT 2.79 mill/uL (4.7-6.1); RED CELL DISTRIBUTION WIDTH 14.5 % (11.6-14.6)
[2018-03-18] MEDS: INSULIN LISPRO 100 UNITS/ML SUBCUT SCH ×3 (06:50→16:37)
[2018-03-18] MEDS: BLOOD SUGAR DIAGNOSTIC STRIP TEST SCH ×4 (06:50→23:34)
[2018-03-18] MEDS ORDERED: CEFAZOLIN 1000MG PREMIX 50 ML IV NR (07:00)
[2018-03-18 07:56] LABS: PLATELET ESTIMATE SLIGHTLY DECREASED
[2018-03-18] MEDS ORDERED: ALBUMIN HUMAN 25GM/500ML (5%) IV NR (08:00)
[2018-03-18] MEDS: ACETYLCYSTEINE 100MG/ML 10% VIAL 4ML INH SCH ×3 (08:43→21:26)
[2018-03-18] MEDS ORDERED: DEXAMETHASONE 4MG/ML 1ML VIAL ONE (09:18)
[2018-03-18] MEDS: DEXAMETHASONE 4MG/ML 1ML VIAL IV SCH (09:24)
[2018-03-18] MEDS ORDERED: LIDOCAINE HCL/PF 2% 20MG/ML 5 ML/VIAL INJ NR (09:25)
[2018-03-18] MEDS ORDERED: LIDOCAINE HCL 1% 20ML VIAL (Pyxis) INJ INFIL ONE (09:30)
[2018-03-18] MEDS ORDERED: LIDOCAINE HCL 2%/EPINEPHRINE/PF 10 ML VIAL INFIL ONE (09:30)
[2018-03-18] MEDS: INSULIN GLARGINE UD 100 UNITS/ML SYR SUBCUT SCH ×2 (09:49→21:33)
[2018-03-18 12:40] LABS: CLARITY URINE CLOUDY (CLEAR); COLOR URINE YELLOW (YELLOW); KETONES URINE NEGATIVE (NEGATIVE); LEUKOCYTE ESTERASE URINE NEGATIVE (NEGATIVE); NITRITE URINE NEGATIVE (NEGATIVE); OCCULT BLOOD URINE 3+ (NEGATIVE); PROTEIN URINE NEGATIVE (NEGATIVE); SPECIFIC GRAVITY URINE 1.015 (1.005-1.030); UROBILINOGEN URINE 0.2 E.U./dL (0.2-1.0)
[2018-03-18 20:05] LABS: INR 1.2; PROTHROMBIN TIME 12.5 sec (9.1-11.1)
[2018-03-18] MEDS: ENOXAPARIN 80MG/0.8ML SYR SUBCUT SCH (20:18)
[2018-03-18] MEDS: LEVOFLOXACIN 250MG PREMIX 50 ML IV SCH (21:33)
[2018-03-18] MEDS: INSULIN LISPRO (LOW DOSE) 100 UNITS/ML SUBCUT SCH (23:34)
[2018-03-19] VITALS (12 sets, daily range): BP systolic 114–132; BP diastolic 56–67
[2018-03-19] MEDS ORDERED: INSULIN LISPRO 100 UNITS/ML SUBCUT SCH
[2018-03-19] MEDS: DEXT 5%/0.45% NACL 1000ML 1,000 ML IV SCH ×2 (01:04→09:55)
[2018-03-19] MEDS: IPRATROPIUM/ALBUTEROL 0.5-3(2.5)MG/3ML NEB HHN SCH ×5 (01:53→21:00)
[2018-03-19] MEDS: ACETYLCYSTEINE 100MG/ML 10% VIAL 4ML INH SCH ×3 (04:22→12:22)
[2018-03-19] MEDS: INSULIN LISPRO (LOW DOSE) 100 UNITS/ML SUBCUT SCH ×3 (05:52→17:23)
[2018-03-19] MEDS: BLOOD SUGAR DIAGNOSTIC STRIP TEST SCH ×4 (05:57→23:41)
[2018-03-19 06:39] LABS: HEMOGLOBIN. 7.8 g/dL (14.0-18.0); MEAN CORPUSCULAR HEMOGLOBIN 30.1 pg (28.0-32.0); MEAN CORPUSCULAR VOLUME 92.9 fL (80.0-94.0); MEAN PLATELET VOLUME 11.4 fl (7.4-10.4); PLATELET 115 x1000/uL (130-400); RED BLOOD CELL COUNT 2.58 mill/uL (4.7-6.1); RED CELL DISTRIBUTION WIDTH 15.1 % (11.6-14.6)
[2018-03-19] MEDS: DEXAMETHASONE 4MG/ML 1ML VIAL IV SCH (09:55)
[2018-03-19] MEDS: INSULIN LISPRO 100 UNITS/ML SUBCUT SCH ×2 (12:00→18:00)
[2018-03-19] MEDS: METOCLOPRAMIDE HCL 10MG/2ML VIAL IV SCH ×3 (12:03→23:38)
[2018-03-19] MEDS: DEXTROSE 5% WATER 1,000 ML IV SCH (12:04)
[2018-03-19 12:41] LABS: HEMATOCRIT 23.2 % (42.0-52.0); HEMOGLOBIN 7.6 g/dL (14.0-18.0)
[2018-03-19] MEDS: DOCUSATE SODIUM SUGAR FREE 100MG/10ML UDC NG SCH (14:29)
[2018-03-19] MEDS: MORPHINE SULFATE 4 MG/ML CPJ (NOT FOR IM USE) IV PRN (14:30)
[2018-03-19] MEDS: ENOXAPARIN 80MG/0.8ML SYR SUBCUT SCH (17:22)
[2018-03-19] MEDS: BISACODYL 10MG SUPP PR PRN (20:08)
[2018-03-19 20:29] LABS: PLATELET ESTIMATE SLIGHTLY DECREASED
[2018-03-19] MEDS: LEVOFLOXACIN 250MG PREMIX 50 ML IV SCH (21:19)
[2018-03-19] MEDS: PANTOPRAZOLE SODIUM 40 MG/VIAL IV SCH (21:19)
[2018-03-19] MEDS: INSULIN GLARGINE UD 100 UNITS/ML SYR SUBCUT SCH (21:20)
[2018-03-19 22:17] LABS: CREATINE KINASE MB FRACTION 3.3 ng/mL (0.5-3.6)
[2018-03-19] MEDS: INSULIN LISPRO (HIGH DOSE) 100 UNITS/ML SUBCUT SCH (23:40)
[2018-03-20] VITALS (12 sets, daily range): BP systolic 112–129; BP diastolic 55–72
[2018-03-20] MEDS ORDERED: INSULIN LISPRO 100 UNITS/ML SUBCUT SCH
[2018-03-20] MEDS: DEXTROSE 5% WATER 1,000 ML IV SCH ×2 (01:36→17:33)
[2018-03-20] MEDS: IPRATROPIUM/ALBUTEROL 0.5-3(2.5)MG/3ML NEB HHN SCH ×4 (02:20→20:31)
[2018-03-20] MEDS: INSULIN LISPRO (HIGH DOSE) 100 UNITS/ML SUBCUT SCH ×3 (05:13→17:48)
[2018-03-20] MEDS: METOCLOPRAMIDE HCL 10MG/2ML VIAL IV SCH ×3 (05:14→17:45)
[2018-03-20] MEDS: INSULIN LISPRO 100 UNITS/ML SUBCUT SCH ×4 (05:14→17:46)
[2018-03-20] MEDS: BLOOD SUGAR DIAGNOSTIC STRIP TEST SCH ×3 (05:14→17:37)
[2018-03-20] MEDS ORDERED: NA PHOS,M-B/NA PHOS,DI-BA ENEMA 118ML PR SCH (07:45)
[2018-03-20] MEDS: DOCUSATE SODIUM SUGAR FREE 100MG/10ML UDC NG SCH (08:48)
[2018-03-20] MEDS: PANTOPRAZOLE SODIUM 40 MG/VIAL IV SCH (08:52)
[2018-03-20] MEDS: DEXAMETHASONE 4MG/ML 1ML VIAL IV SCH (08:54)
[2018-03-20] MEDS ORDERED: CEFAZOLIN 1000MG PREMIX 50 ML IV NR (09:00)
[2018-03-20 09:15] LABS: HEMOGLOBIN. 7.4 g/dL (14.0-18.0); MEAN CORPUSCULAR HEMOGLOBIN 29.7 pg (28.0-32.0); MEAN CORPUSCULAR VOLUME 92.9 fL (80.0-94.0); MEAN PLATELET VOLUME 11.2 fl (7.4-10.4); PLATELET 137 x1000/uL (130-400); RED BLOOD CELL COUNT 2.47 mill/uL (4.7-6.1); RED CELL DISTRIBUTION WIDTH 14.3 % (11.6-14.6)
[2018-03-20 09:53] LABS: PARTIAL THROMBOPLASTIN TIME 29.9 sec (23.4-31.0); PROTHROMBIN TIME 10.2 sec (9.1-11.1)
[2018-03-20 11:09] LABS: PLATELET ESTIMATE NORMAL
[2018-03-20] MEDS ORDERED: SORBITOL 70% SOLN 30ML PO NR (13:30)
[2018-03-20] MEDS: MORPHINE SULFATE 4 MG/ML CPJ (NOT FOR IM USE) IV PRN (15:13)
[2018-03-20] MEDS: ENOXAPARIN 80MG/0.8ML SYR SUBCUT SCH (17:45)
[2018-03-20] MEDS: LEVOFLOXACIN 250MG PREMIX 50 ML IV SCH (22:20)
[2018-03-20] MEDS: INSULIN GLARGINE UD 100 UNITS/ML SYR SUBCUT SCH (22:21)
[2018-03-21] VITALS (18 sets, daily range): BP systolic 115–135; BP diastolic 51–78
[2018-03-21] MEDS: METOCLOPRAMIDE HCL 10MG/2ML VIAL IV SCH ×4 (00:23→17:14)
[2018-03-21] MEDS: IPRATROPIUM/ALBUTEROL 0.5-3(2.5)MG/3ML NEB HHN SCH ×2 (01:35→20:25)
[2018-03-21] MEDS: INSULIN LISPRO (HIGH DOSE) 100 UNITS/ML SUBCUT SCH ×4 (06:00→17:14)
[2018-03-21] MEDS: BLOOD SUGAR DIAGNOSTIC STRIP TEST SCH ×4 (06:00→17:15)
[2018-03-21] MEDS: INSULIN LISPRO 100 UNITS/ML SUBCUT SCH ×4 (06:00→17:15)
[2018-03-21] MEDS: PANTOPRAZOLE SODIUM 40 MG/VIAL IV SCH (08:18)
[2018-03-21] MEDS: DEXAMETHASONE 4MG/ML 1ML VIAL IV SCH (08:18)
[2018-03-21] MEDS: DOCUSATE SODIUM SUGAR FREE 100MG/10ML UDC NG SCH (08:38)
[2018-03-21] MEDS ORDERED: IODIXANOL 320MG/ML 100 ML BOTTLE IV ONE (10:42)
[2018-03-21] MEDS ORDERED: LIDOCAINE HCL 1% 20ML VIAL (Pyxis) INJ ONE (10:42)
[2018-03-21 11:45] LABS: HEMOGLOBIN. 7.9 g/dL (14.0-18.0); MEAN CORPUSCULAR HEMOGLOBIN 30.4 pg (28.0-32.0); MEAN CORPUSCULAR VOLUME 92.8 fL (80.0-94.0); MEAN PLATELET VOLUME 11.3 fl (7.4-10.4); PLATELET 161 x1000/uL (130-400); RED BLOOD CELL COUNT 2.59 mill/uL (4.7-6.1); RED CELL DISTRIBUTION WIDTH 14.5 % (11.6-14.6)
[2018-03-21 14:24] LABS: PLATELET ESTIMATE NORMAL
[2018-03-21] MEDS: BISACODYL 10MG SUPP PR PRN (17:17)
[2018-03-21] MEDS: LEVOFLOXACIN 250MG PREMIX 50 ML IV SCH (21:15)
[2018-03-21] MEDS: INSULIN GLARGINE UD 100 UNITS/ML SYR SUBCUT SCH (21:16)
[2018-03-22] VITALS (15 sets, daily range): BP systolic 105–141; BP diastolic 59–78
[2018-03-22] MEDS: DEXTROSE 5% WATER 1,000 ML IV SCH ×2 (00:31→15:36)
[2018-03-22] MEDS: METOCLOPRAMIDE HCL 10MG/2ML VIAL IV SCH ×4 (00:31→18:16)
[2018-03-22] MEDS: IPRATROPIUM/ALBUTEROL 0.5-3(2.5)MG/3ML NEB HHN SCH ×4 (02:09→21:12)
[2018-03-22] MEDS: BLOOD SUGAR DIAGNOSTIC STRIP TEST SCH ×4 (06:00→18:16)
[2018-03-22] MEDS: INSULIN LISPRO 100 UNITS/ML SUBCUT SCH ×4 (06:00→18:00)
[2018-03-22] MEDS: INSULIN LISPRO (HIGH DOSE) 100 UNITS/ML SUBCUT SCH ×4 (06:00→18:00)
[2018-03-22 07:21] LABS: PARTIAL THROMBOPLASTIN TIME 26.2 sec (23.4-31.0); PROTHROMBIN TIME 9.8 sec (9.1-11.1)
[2018-03-22 07:28] LABS: HEMATOCRIT. 24.3 % (42.0-52.0); HEMOGLOBIN. 7.9 g/dL (14.0-18.0); MEAN CORPUSCULAR HEMOGLOBIN 30.4 pg (28.0-32.0); MEAN CORPUSCULAR VOLUME 93.8 fL (80.0-94.0); MEAN PLATELET VOLUME 11.2 fl (7.4-10.4); PLATELET 167 x1000/uL (130-400); RED BLOOD CELL COUNT 2.59 mill/uL (4.7-6.1); RED CELL DISTRIBUTION WIDTH 14.7 % (11.6-14.6)
[2018-03-22] MEDS: DOCUSATE SODIUM SUGAR FREE 100MG/10ML UDC NG SCH (09:00)
[2018-03-22] MEDS: DEXAMETHASONE 4MG/ML 1ML VIAL IV SCH (10:58)
[2018-03-22] MEDS: PANTOPRAZOLE SODIUM 40 MG/VIAL IV SCH (10:58)
[2018-03-22 11:36] LABS: PLATELET ESTIMATE NORMAL
[2018-03-22] MEDS ORDERED: CEFAZOLIN 1000MG PREMIX 50 ML IV NR (14:30)
[2018-03-22] MEDS ORDERED: MIDAZOLAM HCL 5 MG/5 ML VIAL ONE (16:26)
[2018-03-22] MEDS ORDERED: FENTANYL CITRATE/PF 50MCG/ML 2ML VIAL ONE (16:26)
[2018-03-22] MEDS ORDERED: MIDAZOLAM HCL 5 MG/5 ML VIAL IV NR (16:36)
[2018-03-22] MEDS: MORPHINE SULFATE 4 MG/ML CPJ (NOT FOR IM USE) IV PRN (18:16)
[2018-03-22] MEDS: LEVOFLOXACIN 250MG PREMIX 50 ML IV SCH (20:54)
[2018-03-22] MEDS: INSULIN GLARGINE UD 100 UNITS/ML SYR SUBCUT SCH (22:00)
[2018-03-22] MEDS: EPOETIN ALFA 10000UNITS/ML VIAL SUBCUT SCH (22:24)
[2018-03-23] VITALS (15 sets, daily range): BP systolic 105–127; BP diastolic 50–68
[2018-03-23] MEDS: INSULIN LISPRO (HIGH DOSE) 100 UNITS/ML SUBCUT SCH
[2018-03-23] MEDS: MORPHINE SULFATE 4 MG/ML CPJ (NOT FOR IM USE) IV PRN (00:35)
[2018-03-23] MEDS: METOCLOPRAMIDE HCL 10MG/2ML VIAL IV SCH ×5 (00:39→23:41)
[2018-03-23] MEDS: BLOOD SUGAR DIAGNOSTIC STRIP TEST SCH ×5 (00:43→23:48)
[2018-03-23] MEDS: IPRATROPIUM/ALBUTEROL 0.5-3(2.5)MG/3ML NEB HHN SCH ×4 (00:55→21:20)
[2018-03-23] MEDS: INSULIN LISPRO 100 UNITS/ML SUBCUT SCH ×5 (06:00→23:53)
[2018-03-23] MEDS: INSULIN LISPRO (CUSTOM DOSE) 100 UNITS/ML SUBCUT SCH ×4 (06:30→23:48)
[2018-03-23] MEDS: DOCUSATE SODIUM SUGAR FREE 100MG/10ML UDC NG SCH (09:00)
[2018-03-23] MEDS: BISACODYL 10MG SUPP PR PRN (09:12)
[2018-03-23] MEDS: PANTOPRAZOLE SODIUM 40 MG/VIAL IV SCH (09:12)
[2018-03-23] MEDS: DEXAMETHASONE 4MG/ML 1ML VIAL IV SCH (09:12)
[2018-03-23] MEDS: DEXTROSE 5% WATER 1,000 ML IV SCH (11:51)
[2018-03-23] MEDS ORDERED: INSULIN LISPRO 100 UNITS/ML SUBCUT SCH (12:00)
[2018-03-23 15:38] LABS: HEMATOCRIT. 22.9 % (42.0-52.0); HEMOGLOBIN. 7.5 g/dL (14.0-18.0); MEAN CORPUSCULAR HEMOGLOBIN 30.5 pg (28.0-32.0); MEAN CORPUSCULAR VOLUME 93.2 fL (80.0-94.0); MEAN PLATELET VOLUME 10.6 fl (7.4-10.4); PLATELET 169 x1000/uL (130-400); RED BLOOD CELL COUNT 2.46 mill/uL (4.7-6.1); RED CELL DISTRIBUTION WIDTH 14.4 % (11.6-14.6)
[2018-03-23 16:35] LABS: PLATELET ESTIMATE NORMAL
[2018-03-23] MEDS: ENOXAPARIN 80MG/0.8ML SYR SUBCUT SCH (18:23)
[2018-03-23] MEDS: INSULIN GLARGINE UD 100 UNITS/ML SYR SUBCUT SCH (22:36)
[2018-03-23] MEDS: ACETAMINOPHEN 325MG TABLET PO PRN (23:41)
[2018-03-24] VITALS (12 sets, daily range): BP systolic 96–130; BP diastolic 45–67
[2018-03-24] MEDS: IPRATROPIUM/ALBUTEROL 0.5-3(2.5)MG/3ML NEB HHN SCH ×4 (02:23→20:57)
[2018-03-24] MEDS: DEXTROSE 5% WATER 1,000 ML IV SCH (02:56)
[2018-03-24] MEDS: INSULIN LISPRO (CUSTOM DOSE) 100 UNITS/ML SUBCUT SCH ×3 (06:00→17:09)
[2018-03-24] MEDS: INSULIN LISPRO 100 UNITS/ML SUBCUT SCH (06:00)
[2018-03-24] MEDS: METOCLOPRAMIDE HCL 10MG/2ML VIAL IV SCH ×3 (06:11→17:39)
[2018-03-24] MEDS: BLOOD SUGAR DIAGNOSTIC STRIP TEST SCH ×3 (06:11→17:09)
[2018-03-24 07:50] LABS: HEMATOCRIT. 22.8 % (42.0-52.0); HEMOGLOBIN. 7.5 g/dL (14.0-18.0); MEAN CORPUSCULAR HEMOGLOBIN 30.6 pg (28.0-32.0); MEAN CORPUSCULAR VOLUME 93.3 fL (80.0-94.0); MEAN PLATELET VOLUME 10.6 fl (7.4-10.4); PLATELET 175 x1000/uL (130-400); RED BLOOD CELL COUNT 2.44 mill/uL (4.7-6.1); RED CELL DISTRIBUTION WIDTH 14.7 % (11.6-14.6)
[2018-03-24] MEDS: PANTOPRAZOLE SODIUM 40 MG/VIAL IV SCH (08:54)
[2018-03-24] MEDS: BISACODYL 10MG SUPP PR PRN (08:54)
[2018-03-24] MEDS: DOCUSATE SODIUM SUGAR FREE 100MG/10ML UDC NG SCH (08:58)
[2018-03-24] MEDS ORDERED: GUAIFENESIN 200MG/10ML SUGAR FREE UDC PO PRN (11:30)
[2018-03-24 13:22] LABS: PLATELET ESTIMATE NORMAL
[2018-03-24] MEDS: EPOETIN ALFA 10000UNITS/ML VIAL SUBCUT SCH (21:24)
[2018-03-24] MEDS: INSULIN GLARGINE UD 100 UNITS/ML SYR SUBCUT SCH (21:25)
[2018-03-25] VITALS (20 sets, daily range): BP systolic 110–137; BP diastolic 53–76
[2018-03-25] MEDS: BLOOD SUGAR DIAGNOSTIC STRIP TEST SCH ×4 (00:19→18:00)
[2018-03-25] MEDS: INSULIN LISPRO (CUSTOM DOSE) 100 UNITS/ML SUBCUT SCH ×4 (00:19→18:00)
[2018-03-25] MEDS: METOCLOPRAMIDE HCL 10MG/2ML VIAL IV SCH ×4 (00:19→18:30)
[2018-03-25] MEDS: IPRATROPIUM/ALBUTEROL 0.5-3(2.5)MG/3ML NEB HHN SCH ×4 (01:22→20:37)
[2018-03-25 07:41] LABS: HEMATOCRIT. 22.5 % (42.0-52.0); HEMOGLOBIN. 7.2 g/dL (14.0-18.0); MEAN CORPUSCULAR HEMOGLOBIN 30.1 pg (28.0-32.0); MEAN CORPUSCULAR VOLUME 93.7 fL (80.0-94.0); MEAN PLATELET VOLUME 10.1 fl (7.4-10.4); PLATELET 194 x1000/uL (130-400); RED BLOOD CELL COUNT 2.41 mill/uL (4.7-6.1); RED CELL DISTRIBUTION WIDTH 14.8 % (11.6-14.6)
[2018-03-25] MEDS: PANTOPRAZOLE SODIUM 40 MG/VIAL IV SCH (09:43)
[2018-03-25] MEDS: DOCUSATE SODIUM SUGAR FREE 100MG/10ML UDC NG SCH (09:44)
[2018-03-25 10:16] LABS: PLATELET ESTIMATE NORMAL
[2018-03-25] MEDS: BISACODYL 10MG SUPP PR PRN (10:41)
[2018-03-25 13:27] LABS: HEMOGLOBIN 7.1 g/dL (14.0-18.0)
[2018-03-25 19:22] LABS: HEMATOCRIT 24.8 % (42.0-52.0); HEMOGLOBIN 8.2 g/dL (14.0-18.0)
[2018-03-25] MEDS: AMLODIPINE 2.5MG TABLET PO SCH (21:00)
[2018-03-25] MEDS: LABETALOL HCL 100MG TABLET PO SCH (21:00)
[2018-03-25] MEDS: ATORVASTATIN CALCIUM 20MG TABLET PO SCH (21:04)
[2018-03-25] MEDS: INSULIN GLARGINE UD 100 UNITS/ML SYR SUBCUT SCH (22:17)
[2018-03-26] VITALS: BP 134/65
[2018-03-26] MEDS: INSULIN LISPRO (CUSTOM DOSE) 100 UNITS/ML SUBCUT SCH ×4 (01:47→18:15)
[2018-03-26] MEDS: METOCLOPRAMIDE HCL 10MG/2ML VIAL IV SCH ×4 (01:48→17:39)
[2018-03-26] MEDS: IPRATROPIUM/ALBUTEROL 0.5-3(2.5)MG/3ML NEB HHN SCH ×3 (01:53→21:26)
[2018-03-26] MEDS: ONDANSETRON HCL 4MG/2ML INJ IV PRN (03:24)
[2018-03-26 04:00] VITALS: BP 114/66
[2018-03-26] MEDS: BLOOD SUGAR DIAGNOSTIC STRIP TEST SCH ×4 (05:36→18:00)
[2018-03-26 06:25] LABS: HEMATOCRIT. 25.7 % (42.0-52.0); HEMOGLOBIN. 8.6 g/dL (14.0-18.0); MEAN CORPUSCULAR HEMOGLOBIN 30.9 pg (28.0-32.0); MEAN CORPUSCULAR VOLUME 92.3 fL (80.0-94.0); MEAN PLATELET VOLUME 10.1 fl (7.4-10.4); PLATELET 199 x1000/uL (130-400); RED BLOOD CELL COUNT 2.79 mill/uL (4.7-6.1); RED CELL DISTRIBUTION WIDTH 14.5 % (11.6-14.6)
[2018-03-26 08:00] VITALS: BP 115/71
[2018-03-26] MEDS: PANTOPRAZOLE SODIUM 40 MG/VIAL IV SCH (08:45)
[2018-03-26] MEDS: DOCUSATE SODIUM SUGAR FREE 100MG/10ML UDC NG SCH (08:46)
[2018-03-26] MEDS: AMLODIPINE 2.5MG TABLET PO SCH ×2 (08:47→20:51)
[2018-03-26] MEDS: LABETALOL HCL 100MG TABLET PO SCH ×2 (08:47→20:52)
[2018-03-26 11:41] LABS: PLATELET ESTIMATE NORMAL
[2018-03-26 12:00] VITALS: BP 113/63
[2018-03-26] MEDS: BISACODYL 10MG SUPP PR SCH (14:03)
[2018-03-26 16:00] VITALS: BP 113/61
[2018-03-26 20:00] VITALS: BP 110/63
[2018-03-26] MEDS: EPOETIN ALFA 10000UNITS/ML VIAL SUBCUT SCH (20:51)
[2018-03-26] MEDS: ATORVASTATIN CALCIUM 20MG TABLET PO SCH (20:51)
[2018-03-26] MEDS: INSULIN GLARGINE UD 100 UNITS/ML SYR SUBCUT SCH (22:13)
[2018-03-27] VITALS: BP 128/64
[2018-03-27] MEDS ORDERED: INSULIN LISPRO 100 UNITS/ML SUBCUT SCH
[2018-03-27] MEDS: BLOOD SUGAR DIAGNOSTIC STRIP TEST SCH ×4 (00:03→18:04)
[2018-03-27] MEDS: METOCLOPRAMIDE HCL 10MG/2ML VIAL IV SCH ×4 (00:22→18:38)
[2018-03-27] MEDS: INSULIN LISPRO (LOW DOSE) 100 UNITS/ML SUBCUT SCH ×4 (00:23→18:37)
[2018-03-27] MEDS: IPRATROPIUM/ALBUTEROL 0.5-3(2.5)MG/3ML NEB HHN SCH ×4 (01:25→21:15)
[2018-03-27 04:00] VITALS: BP 118/55
[2018-03-27 06:23] LABS: HEMATOCRIT. 27.4 % (42.0-52.0); MEAN CORPUSCULAR HEMOGLOBIN 30.5 pg (28.0-32.0); MEAN CORPUSCULAR VOLUME 92.8 fL (80.0-94.0); MEAN PLATELET VOLUME 9.5 fl (7.4-10.4); PLATELET 218 x1000/uL (130-400); RED BLOOD CELL COUNT 2.95 mill/uL (4.7-6.1); RED CELL DISTRIBUTION WIDTH 14.6 % (11.6-14.6)
[2018-03-27 07:34] LABS: PHOSPHORUS 1.9 mg/dL (2.5-4.9)
[2018-03-27 07:59] VITALS: BP 103/67
[2018-03-27] MEDS: BISACODYL 10MG SUPP PR SCH (09:00)
[2018-03-27] MEDS: AMLODIPINE 2.5MG TABLET PO SCH ×2 (09:00→22:39)
[2018-03-27] MEDS: LABETALOL HCL 100MG TABLET PO SCH ×2 (09:00→22:38)
[2018-03-27] MEDS: DOCUSATE SODIUM SUGAR FREE 100MG/10ML UDC NG SCH (09:00)
[2018-03-27] MEDS: PANTOPRAZOLE SODIUM 40 MG/VIAL IV SCH (09:51)
[2018-03-27] MEDS: ACETAMINOPHEN 325MG TABLET PO PRN (09:51)
[2018-03-27] MEDS ORDERED: POTASSIUM PHOS,M-BASIC-D-BASIC 15 MMOL in DEXT 5% WATER 245 ML IV SCH (11:00)
[2018-03-27 11:29] LABS: PLATELET ESTIMATE NORMAL
[2018-03-27 12:08] VITALS: BP 106/46
[2018-03-27 15:47] VITALS: BP 109/51
[2018-03-27 20:00] VITALS: BP 116/60
[2018-03-27] MEDS: ATORVASTATIN CALCIUM 20MG TABLET PO SCH (22:39)
[2018-03-28] VITALS: BP 107/57
[2018-03-28] MEDS: BLOOD SUGAR DIAGNOSTIC STRIP TEST SCH ×4 (00:29→18:39)
[2018-03-28] MEDS: METOCLOPRAMIDE HCL 10MG/2ML VIAL IV SCH ×4 (00:43→18:38)
[2018-03-28] MEDS: INSULIN LISPRO (LOW DOSE) 100 UNITS/ML SUBCUT SCH ×4 (00:49→18:58)
[2018-03-28] MEDS: INSULIN GLARGINE UD 100 UNITS/ML SYR SUBCUT SCH (00:53)
[2018-03-28] MEDS: IPRATROPIUM/ALBUTEROL 0.5-3(2.5)MG/3ML NEB HHN SCH ×4 (02:08→21:20)
[2018-03-28 04:00] VITALS: BP 118/64
[2018-03-28] MEDS: ACETAMINOPHEN 325MG TABLET PO PRN (04:24)
[2018-03-28 08:13] LABS: BASOPHILS % 0.6 % (0.0-2.0); EOSINOPHILS % 2.5 % (0.0-5.0); HEMATOCRIT. 22.7 % (42.0-52.0); HEMOGLOBIN. 7.6 g/dL (14.0-18.0); LYMPHOCYTES % 7.7 % (20.0-50.0); MEAN PLATELET VOLUME 9.6 fl (7.4-10.4); MONOCYTES % 6.2 % (2.0-8.0); PLATELET 196 x1000/uL (130-400); RED BLOOD CELL COUNT 2.44 mill/uL (4.7-6.1); RED CELL DISTRIBUTION WIDTH 14.5 % (11.6-14.6)
[2018-03-28 08:26] VITALS: BP 101/56
[2018-03-28 09:15] LABS: PHOSPHORUS 2.7 mg/dL (2.5-4.9)
[2018-03-28] MEDS: PANTOPRAZOLE SODIUM 40 MG/VIAL IV SCH (10:22)
[2018-03-28] MEDS: BISACODYL 10MG SUPP PR SCH (10:22)
[2018-03-28] MEDS: DOCUSATE SODIUM SUGAR FREE 100MG/10ML UDC NG SCH (10:23)
[2018-03-28] MEDS: AMLODIPINE 2.5MG TABLET PO SCH ×2 (10:23→21:59)
[2018-03-28] MEDS: LABETALOL HCL 100MG TABLET PO SCH ×2 (10:23→21:59)
[2018-03-28 12:59] VITALS: BP 99/56
[2018-03-28 17:23] VITALS: BP 123/60
[2018-03-28 18:37] LABS: HEMATOCRIT 21.3 % (42.0-52.0)
[2018-03-28 20:00] VITALS: BP 116/62
[2018-03-28] MEDS: ATORVASTATIN CALCIUM 20MG TABLET PO SCH (21:58)
[2018-03-28] MEDS ORDERED: INSULIN GLARGINE UD 100 UNITS/ML SYR SUBCUT SCH (22:00)
[2018-03-29] VITALS: BP 97/54
[2018-03-29] MEDS: BLOOD SUGAR DIAGNOSTIC STRIP TEST SCH ×2 (00:24→05:55)
[2018-03-29] MEDS: METOCLOPRAMIDE HCL 10MG/2ML VIAL IV SCH ×2 (00:35→06:02)
[2018-03-29] MEDS: INSULIN LISPRO (LOW DOSE) 100 UNITS/ML SUBCUT SCH ×2 (00:36→06:03)
[2018-03-29] MEDS: ONDANSETRON HCL 4MG/2ML INJ IV PRN (01:12)
[2018-03-29] MEDS: IPRATROPIUM/ALBUTEROL 0.5-3(2.5)MG/3ML NEB HHN SCH ×2 (01:53→08:25)
[2018-03-29 03:52] VITALS: BP 107/54
[2018-03-29 04:07] VITALS: BP 107/53
[2018-03-29 05:07] VITALS: BP 119/47
[2018-03-29 06:07] VITALS: BP 101/48
[2018-03-29 08:00] VITALS: BP 91/43
[2018-03-29] MEDS: DOCUSATE SODIUM SUGAR FREE 100MG/10ML UDC NG SCH (09:00)
[2018-03-29] MEDS: AMLODIPINE 2.5MG TABLET PO SCH (09:00)
[2018-03-29] MEDS: PANTOPRAZOLE SODIUM 40 MG/VIAL IV SCH (09:00)
[2018-03-29] MEDS: LABETALOL HCL 100MG TABLET PO SCH (09:00)
[2018-03-29] MEDS: BISACODYL 10MG SUPP PR SCH (09:00)
[2018-03-29] MEDS ORDERED: NOREPINEPHRINE 4 MG in DEXT 5% WATER 246 ML IV PRN (10:30)
[2018-03-29] MEDS ORDERED: PROPOFOL 10MG/ML 100ML 100 ML IV PRN (10:45)
[2018-03-29 11:14] LABS: HEMATOCRIT. 29.9 % (42.0-52.0); HEMOGLOBIN. 9.7 g/dL (14.0-18.0); MEAN CORPUSCULAR HEMOGLOBIN 31.1 pg (28.0-32.0); MEAN CORPUSCULAR VOLUME 95.5 fL (80.0-94.0); MEAN PLATELET VOLUME 10.2 fl (7.4-10.4); PLATELET 98 x1000/uL (130-400); RED BLOOD CELL COUNT 3.13 mill/uL (4.7-6.1); RED CELL DISTRIBUTION WIDTH 14.9 % (11.6-14.6)
[2018-03-29 12:27] LABS: NUCLEATED RED BLOOD CELLS 3 /100 WBC; PLATELET ESTIMATE DECREASED
[2018-03-29] MEDS ORDERED: PIPERACILLIN/TAZ 2.25G PREMIX 50 ML IV SCH (14:00)
[2018-03-29] MEDS ORDERED: LIDOCAINE HCL 2% 5ML SYRINGE IV ONE (14:31)
[2018-03-29] MEDS ORDERED: EPINEPHRINE 0.1MG/ML (1:10,000) 10ML SYR ONE ×2 (14:31→15:20)
[2018-03-29] MEDS ORDERED: VECURONIUM BROMIDE 10 MG/VIAL IV ONE (14:56)
[2018-03-29] MEDS ORDERED: SODIUM CHLORIDE 0.9% 10ML VIAL ONE (14:56)
[2018-03-29] MEDS ORDERED: ETOMIDATE 2MG/ML 10ML VIAL IV ONE (14:56)
[2018-03-29] MEDS ORDERED: ATROPINE SULFATE 1MG/10ML SYR ONE (15:20)
[2018-03-29] MEDS ORDERED: CALCIUM CHLORIDE 1GM/10ML SYR IV ONE (15:20)
[2018-03-29] MEDS ORDERED: SODIUM BICARBONATE 7.5% 0.9 MEQ/ML 50ML SYR IV ONE (15:20)
== END 2018-03-29 16:30 | disposition expired | DRG 853 ==
LOC: ER 08:45 → 8WST 12:12 → ENRESERV 16:24 → SUPCPDRO 18:36 → MICUNO 03-09 11:21 → 7WST 03-12 17:34 → 3WST 03-18 02:06 → 7WST 03-25 23:00
PROVIDERS: ADMIT Internal Medicine Nephrology; ATTEND Internal Medicine Nephrology
PROC: 0RG20K0 Fusion of 2 or more Cervical Vertebral Joints with Nonautologous Tissue Substitute, Anterior Approach, Anterior Column, Open Approach (ICD-10-PCS; 2018-03-09)
PROC: 0RB30ZZ Excision of Cervical Vertebral Disc, Open Approach (ICD-10-PCS; principal; 2018-03-09 11:00)
PROC: 5A09357 Assistance with Respiratory Ventilation, Less than 24 Consecutive Hours, Continuous Positive Airway Pressure (ICD-10-PCS; 2018-03-10)
PROC: 5A09457 Assistance with Respiratory Ventilation, 24-96 Consecutive Hours, Continuous Positive Airway Pressure (ICD-10-PCS; 2018-03-11)
PROC: 0T9B70Z Drainage of Bladder with Drainage Device, Via Natural or Artificial Opening (ICD-10-PCS; 2018-03-18)
PROC: 06H03DZ Insertion of Intraluminal Device into Inferior Vena Cava, Percutaneous Approach (ICD-10-PCS; 2018-03-21)
PROC: B5191ZZ Fluoroscopy of Inferior Vena Cava using Low Osmolar Contrast (ICD-10-PCS; 2018-03-21)
PROC: B549ZZA Ultrasonography of Inferior Vena Cava, Guidance (ICD-10-PCS; 2018-03-21)
PROC: 0DH68UZ Insertion of Feeding Device into Stomach, Via Natural or Artificial Opening Endoscopic (ICD-10-PCS; 2018-03-22)
PROC: 30233N1 Transfusion of Nonautologous Red Blood Cells into Peripheral Vein, Percutaneous Approach (ICD-10-PCS; 2018-03-25)
PROC: 0BH17EZ Insertion of Endotracheal Airway into Trachea, Via Natural or Artificial Opening (ICD-10-PCS; 2018-03-29)
PROC: 5A12012 Performance of Cardiac Output, Single, Manual (ICD-10-PCS; 2018-03-29)
PROC: 5A1935Z Respiratory Ventilation, Less than 24 Consecutive Hours (ICD-10-PCS; 2018-03-29)
DX: A41.9 Sepsis, unspecified organism (principal); K85.90 Acute pancreatitis without necrosis or infection, unspecified; N17.0 Acute kidney failure with tubular necrosis; E43 Unspecified severe protein-calorie malnutrition; G82.50 Quadriplegia, unspecified; N18.6 End stage renal disease; J96.90 Respiratory failure, unspecified, unspecified whether with hypoxia or hypercapnia; G93.40 Encephalopathy, unspecified; E87.0 Hyperosmolality and hypernatremia; G95.0 Syringomyelia and syringobulbia; G99.2 Myelopathy in diseases classified elsewhere; I12.0 Hypertensive chronic kidney disease with stage 5 chronic kidney disease or end stage renal disease; I82.401 Acute embolism and thrombosis of unspecified deep veins of right lower extremity; M62.82 Rhabdomyolysis; J98.11 Atelectasis; K92.2 Gastrointestinal hemorrhage, unspecified; E11.65 Type 2 diabetes mellitus with hyperglycemia; N20.0 Calculus of kidney; M48.02 Spinal stenosis, cervical region; E87.5 Hyperkalemia; B35.1 Tinea unguium; D69.6 Thrombocytopenia, unspecified; E11.22 Type 2 diabetes mellitus with diabetic chronic kidney disease; E11.40 Type 2 diabetes mellitus with diabetic neuropathy, unspecified; E11.649 Type 2 diabetes mellitus with hypoglycemia without coma; E78.00 Pure hypercholesterolemia, unspecified; E78.5 Hyperlipidemia, unspecified; E86.0 Dehydration; E87.6 Hypokalemia; I46.9 Cardiac arrest, cause unspecified; J44.9 Chronic obstructive pulmonary disease, unspecified; K29.60 Other gastritis without bleeding; K42.9 Umbilical hernia without obstruction or gangrene; K59.00 Constipation, unspecified; K76.9 Liver disease, unspecified; K80.20 Calculus of gallbladder without cholecystitis without obstruction; M41.9 Scoliosis, unspecified; M43.16 Spondylolisthesis, lumbar region; M47.896 Other spondylosis, lumbar region; M48.04 Spinal stenosis, thoracic region; M48.061 Spinal stenosis, lumbar region without neurogenic claudication; R26.81 Unsteadiness on feet; M43.22 Fusion of spine, cervical region; M54.12 Radiculopathy, cervical region; M75.01 Adhesive capsulitis of right shoulder; N27.0 Small kidney, unilateral; N40.1 Benign prostatic hyperplasia with lower urinary tract symptoms; R13.12 Dysphagia, oropharyngeal phase; I95.9 Hypotension, unspecified; D63.8 Anemia in other chronic diseases classified elsewhere; R33.8 Other retention of urine; T38.0X5A Adverse effect of glucocorticoids and synthetic analogues, initial encounter; Y92.89 Other specified places as the place of occurrence of the external cause; Z79.4 Long term (current) use of insulin; Z82.49 Family history of ischemic heart disease and other diseases of the circulatory system; Z85.46 Personal history of malignant neoplasm of prostate; Z83.3 Family history of diabetes mellitus; Z86.718 Personal history of other venous thrombosis and embolism; Z87.891 Personal history of nicotine dependence; Z90.79 Acquired absence of other genital organ(s); Z99.2 Dependence on renal dialysis; Z68.25 Body mass index [BMI] 25.0-25.9, adult
CPT/HCPCS: 36415; 36600; 37191; 70551; 71045; 72040; 72141; 72146; 72148; 74018; 74176; 74230; 76700; 80048; 82088; 82140; 82270; 82375; 82550; 82553; 82575; 82607; 82746; 82805; 82962; 83036; 83540; 83550; 83735; 84100; 84132; 84134; 84439; 84443; 84481; 84484; 84681; 85014; 85018; 86850; 86900; 86920; 87070; 87106; 88304; 88311; 92523; 92610; 92611; 93005; 93306; 93970; 94640; 94660; 96374; 97110; 97116; 97162; 97164; 97166; 97168; 97530; 97535; 99285; A4216; C1713; C1769; C1880; C9113; G0482; J0461; J0690; J0885; J1100; J1170; J1200; J1644; J1650; J1815; J1885; J1956; J2250; J2270; J2405; J2543; J2704; J2765; J3010; J3490; J7030; J7040; J7050; J7060; J7070; J7608; J7620; L0172; P9016; P9041; Q9967; A4315